=== PATIENT | male | born 1955 | race Caucasian/White ===

== ENCOUNTER → 2022-06-05 | Outpatient (RCR) | payer OTHER ==
[2004-09-29 07:40] VITALS: BP 146/84; PULSE 75; TEMP 96.9
[~2022-06-05] MED LIST: AMOXICILLIN 8751 TAB PO
== END ==
LOC: WSOH
DX: M25.562 Pain in left knee (principal); I10 Essential (primary) hypertension; F41.9 Anxiety disorder, unspecified; Y99.0 Civilian activity done for income or pay